=== PATIENT | female | born 1960 | race Caucasian/White ===

== ENCOUNTER 2019-03-10 10:54 | Emergency (ER) | payer OTHER, SELFPAY ==
[2019-03-10 11:07] VITALS: BP 168/101; PULSE 114; RESP 18; TEMP 36.7; O2SAT 96; BMI 22.8
--- NOTE | 2019-03-10 11:15 | DI.RAD.S_ITS ---
PROCEDURE: XR FINGER LT MIN 2V INDICATIONS: injury TECHNIQUE: AP hand, 2 views of the right 1st finger(s) acquired. COMPARISON: None. FINDINGS: Bones: There is a moderately displaced comminuted fracture of the distal tuft of the distal phalanx of the 1st digit. There is a possible underlying lucent defect measuring at least 10 mm. Soft tissues: No suspicious soft tissue calcifications. IMPRESSION: Moderately displaced distal tuft fracture of the 1st digit, possibly pathologic. Dictated by: Kimmy Jones M.D. on 03/10/2019 at 11:29 Approved by: Kimmy Jones M.D. on 03/10/2019 at 11:30
--- NOTE | 2019-03-10 11:47 | PC.NURSE ---
Unable to initiate IV access. 4 attempts from 2 different RN's. Called DI nurse who will be over shortly.
--- NOTE | 2019-03-10 12:06 | ED.SKABFB ---
HPI - Skin/Abscess/Foreign Bdy <Bren Hunter PA-C - Last Filed: 03/10/19 19:29> General Chief complaint: Skin/Abscess/Foreign Body Stated complaint: LT THUMB INFECTED Time Seen by Provider: 03/10/19 12:05 Source: patient Mode of arrival: ambulatory Limitations: no limitations History of Present Illness HPI narrative: This 59-year-old female states that she has had intermittent infections in her left thumb for about the last 10 years after a crush injury. She states that the skin around the nail never grew back, and sometimes thinks that she gets a little foreign body in there that causes infection or irritation. She states she does not think the nail was damaged itself. She states that she thought it was getting infected again a couple of weeks ago, saw her PCP, started soaking and started t.i.d. Keflex. She states that the soaks seem to help at 1st, but then not making any progress more recently. She states that it actually opened up last night and drain some blood and pus. She does not think that swelling really went down but the pain is better. She states that it is hard to move the top of her thumb due to the swelling, otherwise has not noted difficulty with movement. She states that it is tender with pressure on the area, not otherwise. She denies any fever or other new symptoms today, states family was concerned looking at it this morning so she came in due to that. Related Data Home Medications Medication Instructions Recorded Confirmed cephalexin 500 mg PO TIDX10 03/10/19 03/10/19 omeprazole magnesium [Prilosec OTC] 20 mg PO DAILY 03/10/19 03/10/19 oxycodone 15 mg PO Q4-6H PRN 03/10/19 03/10/19 Previous Rx's Medication Instructions Recorded sulfamethoxazole-trimethoprim 1 tab PO BID 10 Days #20 tab 03/10/19 [Bactrim DS] Allergies Allergy/AdvReac Type Severity Reaction Status Date / Time No Known Drug Allergies Allergy Verified 03/10/19 11:10 Review of Systems <EKATERINA Mcneill Last Filed: 03/10/19 19:29> Review of Systems ROS Unobtainable: All systems reviewed & are unremarkable except as noted in HPI and below PFSH <Bren Hunter PA-C - Last Filed: 03/10/19 19:29> Medical History (Updated 03/10/19 @ 15:17 by Bren Hunter PA-C) No chronic problems (Chronic) Crushing injury of left hand (Resolved) Surgical History (Updated 03/10/19 @ 12:24 by Bren Hunter PA-C) History of lumbar surgery (Resolved) S/P hysterectomy (Resolved) Social History Smoking Status: Current every day smoker Social History Smoking Status: Current every day smoker Comment: occ ETOH Exam <Bren Hunter PA-C - Last Filed: 03/10/19 19:29> Narrative Exam Narrative: GENERAL APPEARANCE: Patient sitting comfortably, in no distress. LUNGS: Clear to auscultation bilaterally. HEART: Rate and rhythm regular without murmur, normal S1 and S2, no S3 or S4. DERM: All fingers are ruborous and nodular, slightly warm to touch. The left thumb is more edematous at the pad and more erythematous around the nail borders. On the pad there is a more edematous patch of ecchymoses and edema, ovoid. Skin around the nail/thumb pad border is pulled away from the nail. There is no drainage. Moderate tenderness over these areas. + clubbing MUSCULOSKELETAL: No tenderness over the left wrist or 1st metacarpal joint. No point tenderness over the thumb IP. She has limited range of motion at the thumb IP secondary to edema. able to flex and extend the 1st MCP joint. Strength in the thumb is intact in all donald against resistance. Initial Vital Signs Initial Vital Signs: Vital Signs Temperature 98.1 F 03/10/19 11:07 Pulse Rate 114 H 03/10/19 11:07 Respiratory Rate 18 03/10/19 11:07 Blood Pressure 168/101 H 03/10/19 11:07 Pulse Oximetry 96 03/10/19 11:07 <Sirena Pabon DO - Last Filed: 03/13/19 20:39> Initial Vital Signs Initial Vital Signs: Vital Signs Temperature 98.1 F 03/10/19 11:07 Pulse Rate 114 H 03/10/19 11:07 Respiratory Rate 18 04/16/19 11:07 Blood Pressure 168/101 H 03/10/19 11:07 Pulse Oximetry 96 03/10/19 11:07 Procedures <Bren Hunter PA-C - Last Filed: 03/10/19 19:29> Abscess I/D Site: hand (Left thumb) Side (if applicable): left Local Anesthetic: lidocaine 1% (Plain, digital block) Amount of anesthesia used (mL): 6 Technique: other (Incised with 15. Blade) Irrigation: No Packing used?: none Misc Procedure Name of Procedure: Moderate amount of blood mixed with pus was drained from the left thumb pad after digital block obtained. Dr. Pabon did evaluate with ultrasound prior and felt that there might be some remaining fluid that had not drained. Bulky dressing placed. Patient advised to continue hot soaks Course <Bren Hunter PA-C - Last Filed: 03/10/19 19:29> Additional Information: I spoke with radiologist, Dr. Jones and reviewed findings and patient's old history of trauma, no new trauma. He advised that x-ray findings could be due to previous injury rather than acute. Patient has been on cephalexin only 3 times daily without clear clinical improvement. She does think pain is better after this partly drained on its own last night. I did incise and drain some additional blood and pus. Will add Bactrim and advised this needs close monitoring with her PCP as this could be a pulp space infection, and explained may need to see Orthopedics if not improving. She is agreeable with plan for close follow-up and return if needed. She already has pain medication at home from her PCP Orders Ordered: Discontinued Medications Ibuprofen (Advil) 800 mg PO NOW ONE Stop: 03/10/19 12:59 Last Admin: 03/10/19 13:03 Dose: 800 mg Oxycodone/Acetaminophen (Percocet 5/325) 1 tab PO NOW ONE Stop: 03/10/19 12:59 Last Admin: 03/10/19 13:03 Dose: 1 tab Vital Signs - 8 hr 03/10/19 12:14 03/10/19 12:41 03/10/19 14:00 Pulse Rate 112 H 96 H 85 Respiratory Rate 15 16 Blood Pressure [Right Arm] 156/98 H 159/95 H Pulse Oximetry 98 93 03/10/19 14:52 Pulse Rate 84 Respiratory Rate 16 Blood Pressure [Right Arm] 159/95 H Pulse Oximetry 93 <Sirena Pabon DO - Last Filed: 03/13/19 20:39> Orders Ordered: Discontinued Medications Ibuprofen (Advil) 800 mg PO NOW ONE Stop: 03/10/19 12:59 Last Admin: 03/10/19 13:03 Dose: 800 mg Oxycodone/Acetaminophen (Percocet 5/325) 1 tab PO NOW ONE Stop: 03/10/19 12:59 Last Admin: 03/10/19 13:03 Dose: 1 tab Vital Signs - 8 hr 03/10/19 12:14 03/10/19 12:41 03/10/19 14:00 Pulse Rate 112 H 96 H 85 Respiratory Rate 15 16 Blood Pressure [Right Arm] 156/98 H 159/95 H Pulse Oximetry 98 93 03/10/19 14:52 Pulse Rate 84 Respiratory Rate 16 Blood Pressure [Right Arm] 159/95 H Pulse Oximetry 93 MDM - Skin/Abscess/Foreign Bdy <Bren Hunter PA-C - Last Filed: 03/10/19 19:29> Lab Data Result diagrams: 03/10/19 12:20 03/10/19 12:20 Lab Results 03/10/19 03/10/19 03/10/19 Range/Units 12:20 12:20 12:20 WBC 7.8 (4.5-11.0) X10^3/uL RBC 4.53 (4.0-5.2) X10^6/uL Hgb 15.2 (12.0-16.0) g/dL Hct 44.1 (36-46) % MCV 97.4 (80-100) fL MCH 33.4 (26-34) PG MCHC 34.3 (30-36) % RDW 12.2 (11.6-14.8) % Plt Count 391 (150-400) X10^3/uL Neut % (Auto) 74.0 (50-75) % Lymph % (Auto) 17.4 L (25-40) % [place] % (Auto) 7.2 (3-14) % Eos % (Auto) 0.3 L (2-4) % Baso % (Auto) 1.1 (0-2) % Neut # (Auto) 5800 (6095-7365) /uL Lymph # (Auto) 1400 (1258-7134) /uL [place] # (Auto) 600 (0-900) /uL Eos # (Auto) 0 (0-450) /uL Baso # (Auto) 100 (0-100) /uL Sodium 135 L (137-145) mmol/L Potassium 4.1 (3.4-5.1) mmol/L Chloride 101 (98-107) mmol/L Carbon Dioxide 25 (22-32) mmol/L BUN 13 (7-17) mg/dL Creatinine 0.70 (0.52-1.04) mg/dL Estimated GFR > 60.0 (>60) mL/min BUN/Creatinine Ratio 18.6 (6-22) Glucose 99 (80-110) mg/dL Lactate (0.7-2.1) mmol/L Calcium 9.5 (8.4-10.2) mg/dL Total Bilirubin 0.3 (0.2-1.3) mg/dL AST 24 (14-36) IU/L ALT 17 (9-52) IU/L Alkaline Phosphatase 118 (38-126) U/L Total Protein 7.9 (6.3-8.2) g/dL Albumin 4.5 (3.5-5.0) g/dL Globulin 3.4 (1.7-4.1) g/dL Albumin/Globulin Ratio 1.3 (1.0-2.8) Procalcitonin 0.96 H (<0.5) ng/mL 03/10/19 Range/Units 12:20 WBC (4.5-11.0) X10^3/uL RBC (4.0-5.2) X10^6/uL Hgb (12.0-16.0) g/dL Hct (36-46) % MCV (80-100) fL MCH (26-34) PG MCHC (30-36) % RDW (11.6-14.8) % Plt Count (150-400) X10^3/uL Neut % (Auto) (50-75) % Lymph % (Auto) (25-40) % [place] % (Auto) (3-14) % Eos % (Auto) (2-4) % Baso % (Auto) (0-2) % Neut # (Auto) (3588-5780) /uL Lymph # (Auto) (4016-5274) /uL [place] # (Auto) (0-900) /uL Eos # (Auto) (0-450) /uL Baso # (Auto) (0-100) /uL Sodium (137-145) mmol/L Potassium (3.4-5.1) mmol/L Chloride (98-107) mmol/L Carbon Dioxide (22-32) mmol/L BUN (7-17) mg/dL Creatinine (0.52-1.04) mg/dL Estimated GFR (>60) mL/min BUN/Creatinine Ratio (6-22) Glucose (80-110) mg/dL Lactate 0.7 (0.7-2.1) mmol/L Calcium (8.4-10.2) mg/dL Total Bilirubin (0.2-1.3) mg/dL AST (14-36) IU/L ALT (9-52) IU/L Alkaline Phosphatase (38-126) U/L Total Protein (6.3-8.2) g/dL Albumin (3.5-5.0) g/dL Globulin (1.7-4.1) g/dL Albumin/Globulin Ratio (1.0-2.8) Procalcitonin (<0.5) ng/mL Imaging Data hand: Radiologist's impression: [address] [address] XRay Report Signed Patient: Erma Tripp R#: [id number] : 9Acct:[id number] Age/Sex: 59 / FDate of Service: 03/10/19 Loc: ED Accession Number: [id number] Procedure: XR finger LT min 2V Ordering Provider: Sirena Pabon D.O. PROCEDURE: XR FINGER LT MIN 2V INDICATIONS: injury TECHNIQUE: AP hand, 2 views of the right 1st finger(s) acquired. COMPARISON: None. FINDINGS: Bones: There is a moderately displaced comminuted fracture of the distal tuft of the distal phalanx of the 1st digit. There is a possible underlying lucent defect measuring at least 10 mm. Soft tissues: No suspicious soft tissue calcifications. IMPRESSION: Moderately displaced distal tuft fracture of the 1st digit, possibly pathologic. Dictated by: Kimmy Jones M.D. on 03/10/2019 at 11:29 Approved by: Kimmy Jones M.D. on 03/10/2019 at 11:30 <Sirena Pabon, DO - Last Filed: 03/13/19 20:39> Lab Data Lab Results 03/10/19 03/10/19 03/10/19 Range/Units 12:20 12:20 12:20 WBC 7.8 (4.5-11.0) X10^3/uL RBC 4.53 (4.0-5.2) X10^6/uL Hgb 15.2 (12.0-16.0) g/dL Hct 44.1 (36-46) % MCV 97.4 (80-100) fL MCH 33.4 (26-34) PG MCHC 34.3 (30-36) % RDW 12.2 (11.6-14.8) % Plt Count 391 (150-400) X10^3/uL Neut % (Auto) 74.0 (50-75) % Lymph % (Auto) 17.4 L (25-40) % [place] % (Auto) 7.2 (3-14) % Eos % (Auto) 0.3 L (2-4) % Baso % (Auto) 1.1 (0-2) % Neut # (Auto) 5800 (1623-3844) /uL Lymph # (Auto) 1400 (8663-6785) /uL [place] # (Auto) 600 (0-900) /uL Eos # (Auto) 0 (0-450) /uL Baso # (Auto) 100 (0-100) /uL Sodium 135 L (137-145) mmol/L Potassium 4.1 (3.4-5.1) mmol/L Chloride 101 (98-107) mmol/L Carbon Dioxide 25 (22-32) mmol/L BUN 13 (7-17) mg/dL Creatinine 0.70 (0.52-1.04) mg/dL Estimated GFR > 60.0 (>60) mL/min BUN/Creatinine Ratio 18.6 (6-22) Glucose 99 (80-110) mg/dL Lactate (0.7-2.1) mmol/L Calcium 9.5 (8.4-10.2) mg/dL Total Bilirubin 0.3 (0.2-1.3) mg/dL AST 24 (14-36) IU/L ALT 17 (9-52) IU/L Alkaline Phosphatase 118 (38-126) U/L Total Protein 7.9 (6.3-8.2) g/dL Albumin 4.5 (3.5-5.0) g/dL Globulin 3.4 (1.7-4.1) g/dL Albumin/Globulin Ratio 1.3 (1.0-2.8) Procalcitonin 0.96 H (<0.5) ng/mL 03/10/19 Range/Units 12:20 WBC (4.5-11.0) X10^3/uL RBC (4.0-5.2) X10^6/uL Hgb (12.0-16.0) g/dL Hct (36-46) % MCV (80-100) fL MCH (26-34) PG MCHC (30-36) % RDW (11.6-14.8) % Plt Count (150-400) X10^3/uL Neut % (Auto) (50-75) % Lymph % (Auto) (25-40) % [place] % (Auto) (3-14) % Eos % (Auto) (2-4) % Baso % (Auto) (0-2) % Neut # (Auto) (9098-6800) /uL Lymph # (Auto) (8529-9326) /uL [place] # (Auto) (0-900) /uL Eos # (Auto) (0-450) /uL Baso # (Auto) (0-100) /uL Sodium (137-145) mmol/L Potassium (3.4-5.1) mmol/L Chloride (98-107) mmol/L Carbon Dioxide (22-32) mmol/L BUN (7-17) mg/dL Creatinine (0.52-1.04) mg/dL Estimated GFR (>60) mL/min BUN/Creatinine Ratio (6-22) Glucose (80-110) mg/dL Lactate 0.7 (0.7-2.1) mmol/L Calcium (8.4-10.2) mg/dL Total Bilirubin (0.2-1.3) mg/dL AST (14-36) IU/L ALT (9-52) IU/L Alkaline Phosphatase (38-126) U/L Total Protein (6.3-8.2) g/dL Albumin (3.5-5.0) g/dL Globulin (1.7-4.1) g/dL Albumin/Globulin Ratio (1.0-2.8) Procalcitonin (<0.5) ng/mL Imaging Data bedside US thumb: Attestation: I personally reviewed and interpreted this imaging study as follows: My impression: Bedside ultrasound by myself did show a little bit of fluid collection over the pad of the thumb. MDM Narrative Medical decision making narrative: Thumb was evaluated by myself at the request of nurse practitioner, we did bedside ultrasound which showed a little bit of fluid collection so incision and drainage was done with some pus and fluid collection drained. Patient changed antibiotics and plan for short follow-up to make sure she is improving and not worsening. Discharge Plan Departure Patient Disposition: Home Clinical Impression: Cellulitis Qualifiers: Site of cellulitis: extremity Site of cellulitis of extremity: finger Laterality: left Qualified Code(s): L03.012 - Cellulitis of left finger Abscess of skin or subcutaneous tissue Qualifiers: Site of cutaneous abscess: extremity Site of cutaneous abscess of extremity: upper extremity Laterality: left Qualified Code(s): L02.414 - Cutaneous abscess of left upper limb Discharge Date/Time: 03/10/19 15:29 Interventions: ED Discharge Assessment Last Done: 03/10/19 15:28 Instructions: DI for Cellulitis -- Adult, DI for Skin Abscess Activity Restrictions/Additional Instructions: Please return to the ED if you have acutely worsening symptoms, i.e. sudden increase in swelling and pain, worsening or spreading redness or new fever. Otherwise, please continue to soak the thumb in very warm water several times daily. Protect this at work and use a dressing as needed. You can leave open to air when you are relaxing at home. You can continue your cephalexin as prescribed for a few more days, but in addition I have also prescribed an antibiotic called Bactrim to cover for other organisms while we wait for your cultures to come back. Please start this twice daily, take the 1st dose as soon as you pick it up and the 2nd dose at bedtime tonight. You can continue the ibuprofen and also the oxycodone that Dr. Olmedo prescribed for you as needed for pain. Please follow-up with your PCP within about 72 hours for recheck. If this is not getting better, you may need to be referred to an orthopedic (bone specialist) for an infection in the deeper space, or pulp of your thumb. Prescriptions: New sulfamethoxazole-trimethoprim [Bactrim DS] 800-160 mg tablet 1 tab PO BID 10 Days Qty: 20 RF: 0 No Action oxycodone 15 mg tablet 15 mg PO Q4-6H PRN (Reason: pain) RF: 0 cephalexin 500 mg capsule 500 mg PO TIDX10 RF: 0 Prilosec OTC 20 mg Tablet,Delayed Release (Dr/Ec) 20 mg PO DAILY RF: 0 Referrals: Rl Olmedo MD [Primary Care Provider] -
[2019-03-10 12:14] VITALS: PULSE 112
--- NOTE | 2019-03-10 12:25 | ED_ITS ---
HPI - Skin/Abscess/Foreign Bdy <Bren Hunter PA-C - Last Filed: 03/10/19 19:29> General Chief complaint: Skin/Abscess/Foreign Body Stated complaint: LT THUMB INFECTED Time Seen by Provider: 03/10/19 12:05 Source: patient Mode of arrival: ambulatory Limitations: no limitations History of Present Illness HPI narrative: This 59-year-old female states that she has had intermittent infections in her left thumb for about the last 10 years after a crush injury. She states that the skin around the nail never grew back, and sometimes thinks that she gets a little foreign body in there that causes infection or irritation. She states she does not think the nail was damaged itself. She st ates that she thought it was getting infected again a couple of weeks ago, saw her PCP, started soaking and started t.i.d. Keflex. She states that the soaks seem to help at 1st, but then not making any progress more recently. She states that it actually opened up last night and drain some blood and pus. She does not think that swelling really went down but the pain is better. She states that it is hard to move the top of her thumb due to the swelling, otherwise has not noted difficulty with movement. She states that it is tender with pressure on the area, not otherwise. She denies any fever or other new symptoms today, states family was concerned looking at it this morning so she came in due to that. Related Data Home Medications Medication Instructions Recorded Confirmed cephalexin 500 mg PO TIDX10 03/10/19 03/10/19 omeprazole magnesium [Prilosec OTC] 20 mg PO DAILY 03/10/19 03/10/19 oxycodone 15 mg PO Q4-6H PRN 03/10/19 03/10/19 Previous Rx's Medication Instructions Recorded sulfamethoxazole-trimethoprim 1 tab PO BID 10 Days #20 tab 03/10/19 [Bactrim DS] Allergies Allergy/AdvReac Type Severity Reaction Status Date / Time No Known Drug Allergies Allergy Verified 03/10/19 11:10 Review of Systems <Bren Hunter PA-C - Last Filed: 03/10/19 19:29> Review of Systems ROS Unobtainable: All systems reviewed & are unremarkable except as noted in HPI and below PFSH <Bren Hunter PA-C - Last Filed: 03/10/19 19:29> Medical History (Updated 03/10/19 @ 15:17 by Bren Hunter PA-C) No chronic problems (Chronic) Crushing injury of left hand (Resolved) Surgical History (Updated 03/10/19 @ 12:24 by Bren Hunter PA-C) History of lumbar surgery (Resolved) S/P hysterectomy (Resolved) Social History Smoking Status: Current every day smoker Social History Smoking Status: Current every day smoker Comment: occ ETOH Exam <Bren Hunter PA-C - Last Filed: 03/10/19 19:29> Narrative Exam Narrative: GENERAL APPEARANCE: Patient sitting comfortably, in no distress. LUNGS: Clear to auscultation bilaterally. HEART: Rate and rhythm regular without murmur, normal S1 and S2, no S3 or S4. DERM: All fingers are ruborous and nodular, slightly warm to touch. The left thumb is more edematous at the pad and more erythematous around the nail borders. On the pad there is a more edematous patch of ecchymoses and edema, ovoid. Skin around the nail/thumb pad border is pulled away from the nail. There is no drainage. Moderate tenderness over these areas. + clubbing MUSCULOSKELETAL: No tenderness over the left wrist or 1st metacarpal joint. No point tenderness over the thumb IP. She has limited range of motion at the thumb IP secondary to edema. able to flex and extend the 1st MCP joint. Strength in the thumb is intact in all donald against resistance. Initial Vital Signs Initial Vital Signs: Vital Signs Temperature 98.1 F 03/10/19 11:07 Pulse Rate 114 H 03/10/19 11:07 Respiratory Rate 18 03/10/19 11:07 Blood Pressure 168/101 H 03/10/19 11:07 Pulse Oximetry 96 03/10/19 11:07 <Sirena Pabon DO - Last Filed: 03/13/19 20:39> Initial Vital Signs Initial Vital Signs: Vital Signs Temperature 98.1 F 03/10/19 11:07 Pulse Rate 114 H 03/10/19 11:07 Respiratory Rate 18 03/10/19 11:07 Blood Pressure 168/101 H 03/10/19 11:07 Pulse Oximetry 96 03/10/19 11:07 Procedures <Bren Hunter PA-C - Last Filed: 03/10/19 19:29> Abscess I/D Site: hand (Left thumb) Side (if applicable): left Local Anesthetic: lidocaine 1% (Plain, digital block) Amount of anesthesia used (mL): 6 Technique: other (Incised with 15. Blade) Irrigation: No Packing used?: none Misc Procedure Name of Procedure: Moderate amount of blood mixed with pus was drained from the left thumb pad after digital block obtained. Dr. Pabon did evaluate with ultrasound prior and felt that there might be some remaining fluid that had not drained. Bulky dressing placed. Patient advised to continue hot soaks Course <Bren Hunter PA-C - Last Filed: 03/10/19 19:29> Additional Information: I spoke with radiologist, Dr. Jones and reviewed findings and patient's old history of trauma, no new trauma. He advised that x- ray findings could be due to previous injury rather than acute. Patient has been on cephalexin only 3 times daily without clear clinical improvement. She does think pain is better after this partly drained on its own last night. I did incise and drain some additional blood and pus. Will add Bactrim and advised this needs close monitoring with her PCP as this could be a pulp space infection, and explained may need to see Orthopedics if not improving. She is agreeable with plan for close follow-up and return if needed. She already has pain medication at home from her PCP Orders Ordered: Discontinued Medications Ibuprofen (Advil) 800 mg PO NOW ONE Stop: 03/10/19 12:59 Last Admin: 03/10/19 13:03 Dose: 800 mg Oxycodone/Acetaminophen (Percocet 5/325) 1 tab PO NOW ONE Stop: 03/10/19 12:59 Last Admin: 03/10/19 13:03 Dose: 1 tab Vital Signs - 8 hr 03/10/19 12:14 03/10/19 12:41 03/10/19 14:00 Pulse Rate 112 H 96 H 85 Respiratory Rate 15 16 Blood Pressure [Right Arm] 156/98 H 159/95 H Pulse Oximetry 98 93 03/10/19 14:52 Pulse Rate 84 Respiratory Rate 16 Blood Pressure [Right Arm] 159/95 H Pulse Oximetry 93 <Sirena Pabon DO - Last Filed: 03/13/19 20:39> Orders Ordered: Discontinued Medications Ibuprofen (Advil) 800 mg PO NOW ONE Stop: 03/10/19 12:59 Last Admin: 03/10/19 13:03 Dose: 800 mg Oxycodone/Acetaminophen (Percocet 5/325) 1 tab PO NOW ONE Stop: 03/10/19 12:59 Last Admin: 03/10/19 13:03 Dose: 1 tab Vital Signs - 8 hr 03/10/19 12:14 03/10/19 12:41 03/10/19 14:00 Pulse Rate 112 H 96 H 85 Respiratory Rate 15 16 Blood Pressure [Right Arm] 156/98 H 159/95 H Pulse Oximetry 98 93 03/10/19 14:52 Pulse Rate 84 Respiratory Rate 16 Blood Pressure [Right Arm] 159/95 H Pulse Oximetry 93 MDM - Skin/Abscess/Foreign Bdy <Bren Hunter PA-C - Last Filed: 03/10/19 19:29> Lab Data Result diagrams: 03/10/19 12:20 03/10/19 12:20 Lab Results 03/10/19 03/10/19 03/10/19 Range/Units 12:20 12:20 12:20 WBC 7.8 (4.5-11.0) X10^3/uL RBC 4.53 (4.0-5.2) X10^6/uL Hgb 15.2 (12.0-16.0) g/dL Hct 44.1 (36-46) % MCV 97.4 (80-100) fL MCH 33.4 (26-34) PG MCHC 34.3 (30-36) % RDW 12.2 (11.6-14.8) % Plt Count 391 (150-400) X10^3/uL Neut % (Auto) 74.0 (50-75) % Lymph % (Auto) 17.4 L (25-40) % Dickens % (Auto) 7.2 (3-14) % Eos % (Auto) 0.3 L (2-4) % Baso % (Auto) 1.1 (0-2) % Neut # (Auto) 5800 (6523-8041) /uL Lymph # (Auto) 1400 (6657-6019) /uL Dickens # (Auto) 600 (0-900) /uL Eos # (Auto) 0 (0-450) /uL Baso # (Auto) 100 (0-100) /uL Sodium 135 L (137-145) mmol/L Potassium 4.1 (3.4-5.1) mmol/L Chloride 101 (98-107) mmol/L Carbon Dioxide 25 (22-32) mmol/L BUN 13 (7-17) mg/dL Creatinine 0.70 (0.52-1.04) mg/dL Estimated GFR > 60.0 (>60) mL/min BUN/Creatinine Ratio 18.6 (6-22) Glucose 99 (80-110) mg/dL Lactate (0.7-2.1) mmol/L Calcium 9.5 (8.4-10.2) mg/dL Total Bilirubin 0.3 (0.2-1.3) mg/dL AST 24 (14-36) IU/L ALT 17 (9-52) IU/L Alkaline Phosphatase 118 (38-126) U/L Total Protein 7.9 (6.3-8.2) g/dL Albumin 4.5 (3.5-5.0) g/dL Globulin 3.4 (1.7-4.1) g/dL Albumin/Globulin Ratio 1.3 (1.0-2.8) Procalcitonin 0.96 H (<0.5) ng/mL 03/10/19 Range/Units 12:20 WBC (4.5-11.0) X10^3/uL RBC (4.0-5.2) X10^6/uL Hgb (12.0-16.0) g/dL Hct (36-46) % MCV (80-100) fL MCH (26-34) PG MCHC (30-36) % RDW (11.6-14.8) % Plt Count (150-400) X10^3/uL Neut % (Auto) (50-75) % Lymph % (Auto) (25-40) % Dickens % (Auto) (3-14) % Eos % (Auto) (2-4) % Baso % (Auto) (0-2) % Neut # (Auto) (8490-4584) /uL Lymph # (Auto) (0071-5340) /uL Dickens # (Auto) (0-900) /uL Eos # (Auto) (0-450) /uL Baso # (Auto) (0-100) /uL Sodium (137-145) mmol/L Potassium (3.4-5.1) mmol/L Chloride (98-107) mmol/L Carbon Dioxide (22-32) mmol/L BUN (7-17) mg/dL Creatinine (0.52-1.04) mg/dL Estimated GFR (>60) mL/min BUN/Creatinine Ratio (6-22) Glucose (80-110) mg/dL Lactate 0.7 (0.7-2.1) mmol/L Calcium (8.4-10.2) mg/dL Total Bilirubin (0.2-1.3) mg/dL AST (14-36) IU/L ALT (9-52) IU/L Alkaline Phosphatase (38-126) U/L Total Protein (6.3-8.2) g/dL Albumin (3.5-5.0) g/dL Globulin (1.7-4.1) g/dL Albumin/Globulin Ratio (1.0-2.8) Procalcitonin (<0.5) ng/mL Imaging Data hand: Radiologist's impression: [address] [address] XRay Report Signed Patient: Erma Tripp R#: [id number] : 9Acct:[id number] Age/Sex: 59 / FDate of Service: 03/10/19 Loc: ED Accession Number: [id number] Procedure: XR finger LT min 2V Ordering Provider: Sirena Pabon D.O. PROCEDURE: XR FINGER LT MIN 2V INDICATIONS: injury TECHNIQUE: AP hand, 2 views of the right 1st finger(s) acquired. COMPARISON: None. FINDINGS: Bones: There is a moderately displaced comminuted fracture of the distal tuft of the distal phalanx of the 1st digit. There is a possible underlying lucent defect me asuring at least 10 mm. Soft tissues: No suspicious soft tissue calcifications. IMPRESSION: Moderately displaced distal tuft fracture of the 1st digit, possibly pathologic. Dictated by: Kimmy Jones M.D. on 03/10/2019 at 11:29 Approved by: Kimmy Jones M.D. on 03/10/2019 at 11:30 <Sirena Pabon, - Last Filed: 03/13/19 20:39> Lab Data Lab Results 03/10/19 03/10/19 03/10/19 Range/Units 12:20 12:20 12:20 WBC 7.8 (4.5-11.0) X10^3/uL RBC 4.53 (4.0-5.2) X10^6/uL Hgb 15.2 (12.0-16.0) g/dL Hct 44.1 (36-46) % MCV 97.4 (80-100) fL MCH 33.4 (26-34) PG MCHC 34.3 (30-36) % RDW 12.2 (11.6-14.8) % Plt Count 391 (150-400) X10^3/uL Neut % (Auto) 74.0 (50-75) % Lymph % (Auto) 17.4 L (25-40) % Dickens % (Auto) 7.2 (3-14) % Eos % (Auto) 0.3 L (2-4) % Baso % (Auto) 1.1 (0-2) % Neut # (Auto) 5800 (3285-9732) /uL Lymph # (Auto) 1400 (5534-4847) /uL Dickens # (Auto) 600 (0-900) /uL Eos # (Auto) 0 (0-450) /uL Baso # (Auto) 100 (0-100) /uL Sodium 135 L (137-145) mmol/L Potassium 4.1 (3.4-5.1) mmol/L Chloride 101 (98-107) mmol/L Carbon Dioxide 25 (22-32) mmol/L BUN 13 (7-17) mg/dL Creatinine 0.70 (0.52-1.04) mg/dL Estimated GFR > 60.0 (>60) mL/min BUN/Creatinine Ratio 18.6 (6-22) Glucose 99 (80-110) mg/dL Lactate (0.7-2.1) mmol/L Calcium 9.5 (8.4-10.2) mg/dL Total Bilirubin 0.3 (0.2-1.3) mg/dL AST 24 (14-36) IU/L ALT 17 (9-52) IU/L Alkaline Phosphatase 118 (38-126) U/L Total Protein 7.9 (6.3-8.2) g/dL Albumin 4.5 (3.5-5.0) g/dL Globulin 3.4 (1.7-4.1) g/dL Albumin/Globulin Ratio 1.3 (1.0-2.8) Procalcitonin 0.96 H (<0.5) ng/mL 03/10/19 Range/Units 12:20 WBC (4.5-11.0) X10^3/uL RBC (4.0-5.2) X10^6/uL Hgb (12.0-16.0) g/dL Hct (36-46) % MCV (80-100) fL MCH (26-34) PG MCHC (30-36) % RDW (11.6-14.8) % Plt Count (150-400) X10^3/uL Neut % (Auto) (50-75) % Lymph % (Auto) (25-40) % Dickens % (Auto) (3-14) % Eos % (Auto) (2-4) % Baso % (Auto) (0-2) % Neut # (Auto) (8345-0537) /uL Lymph # (Auto) (3145-1498) /uL Dickens # (Auto) (0-900) /uL Eos # (Auto) (0-450) /uL Baso # (Auto) (0-100) /uL Sodium (137-145) mmol/L Potassium (3.4-5.1) mmol/L Chloride (98-107) mmol/L Carbon Dioxide (22-32) mmol/L BUN (7-17) mg/dL Creatinine (0.52-1.04) mg/dL Estimated GFR (>60) mL/min BUN/Creatinine Ratio (6-22) Glucose (80-110) mg/dL Lactate 0.7 (0.7-2.1) mmol/L Calcium (8.4-10.2) mg/dL Total Bilirubin (0.2-1.3) mg/dL AST (14-36) IU/L ALT (9-52) IU/L Alkaline Phosphatase (38-126) U/L Total Protein (6.3-8.2) g/dL Albumin (3.5-5.0) g/dL Globulin (1.7-4.1) g/dL Albumin/Globulin Ratio (1.0-2.8) Procalcitonin (<0.5) ng/mL Imaging Data bedside US thumb: Attestation: I personally reviewed and interpreted this imaging study as follows: My impression: Bedside ultrasound by myself did show a little bit of fluid collection over the pad of the thumb. MDM Narrative Medical decision making narrative: Thumb was evaluated by myself at the request of nurse practitioner, we did bedside ultrasound which showed a little bit of fluid collection so incision and drainage was done with some pus and fluid collection drained. Patient changed antibiotics and plan for short follow-up to make sure she is improving and not worsening. Discharge Plan Departure Patient Disposition: Home Clinical Impression: Cellulitis Qualifiers: Site of cellulitis: extremity Site of cellulitis of extremity: finger Laterality: left Qualified Code(s): L03.012 - Cellulitis of left finger Abscess of skin or subcutaneous tissue Qualifiers: Site of cutaneous abscess: extremity Site of cutaneous abscess of extremity: upper extremity Laterality: left Qualified Code(s): L02.414 - Cutaneous abscess of left upper limb Discharge Date/Time: 03/10/19 15:29 Interventions: ED Discharge Assessment Last Done: 03/10/19 15:28 Instructions: DI for Cellulitis -- Adult, DI for Skin Abscess Activity Restrictions/Additional Instructions: Please return to the ED if you have acutely worsening symptoms, i.e. sudden increase in swelling and pain, worsening or spreading redness or new fever. Otherwise, please continue to soak the thumb in very warm water several times daily. Protect this at work and use a dressing as needed. You can leave open to air when you are relaxing at home. You can continue your cephalexin as prescribed for a few more days, but in addition I have also prescribed an antibiotic called Bactrim to cover for other organisms while we wait for your cultures to come back. Please start this twice daily, take the 1st dose as soon as you pick it up and the 2nd dose at bedtime tonight. You can continue the ibuprofen and also the oxycodone that Dr. Olmedo prescribed for you as needed for pain. Please follow-up with your PCP within about 72 hours for recheck. If this is not getting better, you may need to be referred to an orthopedic (bone specialist) for an infection in the deeper space, or pulp of your thumb. Prescriptions: New sulfamethoxazole-trimethoprim [Bactrim DS] 800-160 mg tablet 1 tab PO BID 10 Days Qty: 20 RF: 0 No Action oxycodone 15 mg tablet 15 mg PO Q4-6H PRN (Reason: pain) RF: 0 cephalexin 500 mg capsule 500 mg PO TIDX10 RF: 0 Prilosec OTC 20 mg Tablet,Delayed Release (Dr/Ec) 20 mg PO DAILY RF: 0 Referrals: Rl Olmedo MD [Primary Care Provider] -
[2019-03-10 12:30] LABS: Add Manual Diff / Slide Review NO; Basophils Absolute Auto 100 /uL (0-100); Basophils Percent Auto 1.1 % (0-2); Eosinophils Absolute Auto 0 /uL (0-450); Eosinophils Percent Auto 0.3 % (2-4); Hematocrit 44.1 % (36-46); Hemoglobin 15.2 g/dL (12.0-16.0); Lymphocytes Absolute Auto 1400 /uL (1100-4500); Lymphocytes Percent Auto 17.4 % (25-40); Mean Corpuscular HGB Conc 34.3 % (30-36); Mean Corpuscular Hemoglobin 33.4 PG (26-34); Mean Corpuscular Volume 97.4 fL (80-100); Monocytes Absolute Auto 600 /uL (0-900); Monocytes Percent Auto 7.2 % (3-14); Neutrophils Absolute Auto 5800 /uL (1500-7000); Platelet Count 391 X10^3/uL (150-400); Red Blood Cell Count 4.53 X10^6/uL (4.0-5.2); Red Cell Distribution Width 12.2 % (11.6-14.8); White Blood Cell Count 7.8 X10^3/uL (4.5-11.0)
[2019-03-10 12:41] VITALS: BP 156/98; PULSE 96; RESP 15; O2SAT 98
[2019-03-10 12:41] LABS: Lactate (Lactic Acid) 0.7 mmol/L (0.7-2.1)
[2019-03-10 12:42] LABS: Alanine Aminotransferase 17 IU/L (9-52); Albumin 4.5 g/dL (3.5-5.0); Albumin Globulin Ratio 1.3 (1.0-2.8); Alkaline Phosphatase 118 U/L (38-126); Aspartate Aminotransferase 24 IU/L (14-36); BUN Creatinine Ratio 18.6 (6-22); Bilirubin Total 0.3 mg/dL (0.2-1.3); Blood Urea Nitrogen 13 mg/dL (7-17); Calcium 9.5 mg/dL (8.4-10.2); Carbon Dioxide 25 mmol/L (22-32); Chloride 101 mmol/L (98-107); Estimated Glomerular Filt Rate > 60.0 mL/min (>60); Globulin 3.4 g/dL (1.7-4.1); Glucose 99 mg/dL (80-110); HEMOLYSIS 16 (0-50); Potassium 4.1 mmol/L (3.4-5.1); Sodium 135 mmol/L (137-145); Total Protein 7.9 g/dL (6.3-8.2)
[2019-03-10] MEDS: IBUPROFEN 400 MG TABLET 800 MG PO (13:03)
[2019-03-10] MEDS: OXYCODONE/ACETAMINOPHEN 5/325 TABLET 1 TAB PO (13:03)
[2019-03-10 13:07] LABS: Procalcitonin 0.96 ng/mL (<0.5)
[2019-03-10 14:00] VITALS: BP 159/95; PULSE 85; RESP 16; O2SAT 93
[2019-03-10 14:52] VITALS: BP 159/95; PULSE 84; RESP 16; O2SAT 93
== END 2019-03-10 15:29 | disposition home or self-care (01) ==
PROVIDERS: Emergency Medicine; Emergency Provider Internal Medicine; PCP Family Medicine
DX: L03.012 Cellulitis of left finger (principal)
CPT/HCPCS: 26010; 36591; 73140; 80053; 83605; 84145; 85025; 87040; 87070; 87075; 87077; 87205; 99283; 99284

== ENCOUNTER → 2019-04-10 11:55 | Outpatient (CLI) | payer OTHER, SELFPAY ==
[2019-04-10 13:34] LABS: BUN Creatinine Ratio 14.3 (6-22); Blood Urea Nitrogen 10 mg/dL (7-17); Estimated Glomerular Filt Rate > 60.0 mL/min (>60)
== END ==
PROVIDERS: Family Provider Family Medicine; PCP Family Medicine; Visit Provider Orthopaedic Surgery
DX: Z01.812 Encounter for preprocedural laboratory examination (principal)
CPT/HCPCS: 36415; 82565; 84520